=== PATIENT | male | born 1950 | race Caucasian/White ===

== ENCOUNTER 2017-07-13 20:43 | Observation (INO) | payer BC ==
[2017-07-13] MEDS ORDERED: Acetaminophen 325 MG Tab PO ONE (22:09)
[2017-07-13] MEDS ORDERED: Albuterol/Ipratropium 3.0-0.5 MG/3 ML Neb Soln NEB ONE (22:10)
[2017-07-13] MEDS ORDERED: Benzocaine/Cetylpyridinium/Menthol Lozenge MUCMEM PRN (22:56)
[2017-07-13] MEDS ORDERED: Ondansetron 4 MG Tab.DIS PO ONE (22:57)
[2017-07-13] MEDS ORDERED: cefTRIAXone 1 GM in Sodium Chloride 0.9% 50 ML IV ONE (23:03)
--- NOTE | 2017-07-14 00:06 | EDM.PDOC ---
ED HPI GENERAL MEDICAL PROBLEM - General Chief Complaint: General Stated Complaint: COLD Time Seen by Provider: 07/13/17 21:02 Source of Information: Reports: Patient, Family History Limitations: Reports: No Limitations - History of Present Illness INITIAL COMMENTS - FREE TEXT/NARRATIVE: This gentleman comes in because of cough fever and shortness of breath. He is from out of town and here visiting for about a week and are staying in a cabin about 20 miles out of town. Today he felt crummy. He's had a cough he gets a little bit of chest pain with cough and has noted that he has a fever. He has a history of chronic bronchitis and quit smoking just a few weeks ago. He used his albuterol inhaler at home but says it really didn't help too much. Normally he has an O2 sat of about 95%. Patient did have a myocardial infarction and one stent placed about 3 weeks ago. That was in [place]. He also had an DC 9 years ago and had 3 stents placed at that time. He said since then he has done very well. Patient does have a history of diabetes rheumatoid arthritis. Takes prednisone. Also takes methotrexate weekly. He is on Plavix and aspirin. His last Pneumovax was about 10 years ago. He's due for another one now. He complains of some vague discomfort in the chest and in the right lower quadrant whenever he coughs. He hasn't been taking anything for fever. He said that along time ago a doctor told him not to take Tylenol. He knows that he can't take ibuprofen since he is on the aspirin and Plavix. Throat Pain Score (Numeric/FACES): 8 Right Lower Abdominal Pain Score (Numeric/FACES): 2 - Related Data Allergies Allergy/AdvReac Type Severity Reaction Status Date / Time No Known Allergies Allergy Verified 07/13/17 21:50 Home Meds: Home Meds *Metoprolol Tartrate 1 tab PO BID 07/13/17 [History] Albuterol [Proventil HFA] 1 puff INH ASDIRECTED 07/13/17 [History] Aspirin 1 tab PO DAILY 07/13/17 [History] Clopidogrel [Plavix] 1 tab PO DAILY 07/13/17 [History] Lisinopril 1 tab PO DAILY 07/13/17 [History] Methotrexate 3 tab PO ASDIRECTED 07/13/17 [History] Pantoprazole [ProTONIX] 1 tab PO DAILY 07/13/17 [History] Rosuvastatin [Crestor] 1 tab PO DAILY 07/13/17 [History] cloNIDine [Catapres] 1 tab PO DAILY 07/13/17 [History] metFORMIN HCl [Metformin HCl] 2 tab PO BID 07/13/17 [History] predniSONE [Prednisone] 1 tab PO DAILY 07/13/17 [History] Past Medical History Cardiovascular History: Reports: CAD, High Cholesterol, Hypertension, DC, Stents Respiratory History: Reports: Bronchitis, Recurrent Gastrointestinal History: Reports: Other (See Below) Musculoskeletal History: Reports: RA Endocrine/Metabolic History: Reports: Diabetes, Type II Immunologic History: Reports: Other (See Below) Other Immunologic History: RA- on medications Dermatologic History: Reports: Eczema - Past Surgical History HEENT Surgical History: Reports: Tonsillectomy Cardiovascular Surgical History: Reports: Coronary Artery Stent GI Surgical History: Reports: Cholecystectomy, Hernia Repair/Other Musculoskeletal Surgical History: Reports: Arthroscopic Knee Social & Family History - Tobacco Use Smoking Status *Q: Former Smoker Used Tobacco, but Quit: Yes Month Tobacco Last Used: may 2017 - Recreational Drug Use Recreational Drug Use: No ED ROS GENERAL - Review of Systems Review Of Systems: See Below Constitutional: Reports: Fever, Chills, Malaise HEENT: Reports: No Symptoms Respiratory: Reports: Shortness of Breath, Pleuritic Chest Pain, Cough Cardiovascular: Reports: No Symptoms Endocrine: Reports: No Symptoms GI/Abdominal: Reports: Other (Vague right lower quadrant pain with cough) : Reports: No Symptoms Musculoskeletal: Reports: No Symptoms Skin: Reports: No Symptoms Neurological: Reports: No Symptoms Psychiatric: Reports: No Symptoms Hematologic/Lymphatic: Reports: No Symptoms Immunologic: Reports: No Symptoms ED EXAM, GENERAL - Physical Exam Exam: See Below Exam Limited By: No Limitations General Appearance: Alert, Mild Distress (Same was minimally short of breath), Other (Chronically ill appearing) Eye Exam: Bilateral Eye: Normal Inspection Throat/Mouth: Normal Inspection (I did) Head: Atraumatic Neck: Normal Inspection Respiratory/Chest: Lungs Clear (Distant breath sounds) Cardiovascular: Normal Peripheral Pulses, Regular Rate, Rhythm, No Edema, No Murmur Peripheral Pulses: 2+: Radial (L), Radial (R) GI/Abdominal: Soft, Non-Tender, Other (Bladder not distended) Back Exam: Normal Inspection Extremities: Normal Inspection Neurological: Alert, Oriented Psychiatric: Normal Affect Skin Exam: Warm, Dry Course - Vital Signs Last Recorded V/S: Last Vital Signs Temp 38.2 C H 07/13/17 23:49 Pulse 91 07/13/17 23:49 Resp 18 07/13/17 23:49 BP 152/76 H 07/13/17 23:49 Pulse Ox 94 L 07/13/17 23:49 - Orders/Labs/Meds Orders: Active Orders 24 hr Category Date Time Status EKG Documentation Completion [RC] ASDIRECTED Care 07/13/17 21:03 Active RT Aerosol Therapy [RC] ASDIRECTED Care 07/13/17 22:10 Active Chest 2V [CR] Urgent Exams 07/13/17 21:03 Taken CULTURE BLOOD [BC] Urgent Lab 07/13/17 21:03 Received CULTURE BLOOD [BC] Urgent Lab 07/13/17 21:03 Received UA W/MICROSCOPIC [URIN] Urgent Lab 07/13/17 23:33 Uncollected Benzocaine/Cetylpyrd/Menthol [Cepacol Sore Throat] Med 07/13/17 22:56 Active 1 lozenge MUCMEM ASDIRECTED PRN Blood Culture x2 Reflex Set [OM.PC] Urgent Oth 07/13/17 21:03 Ordered EKG 12 Lead [EK] Urgent Ther 07/13/17 21:03 Ordered Medication Orders Benzocaine/Menthol (Cepacol Sore Throat) 1 lozenge MUCMEM ASDIRECTED PRN PRN Reason: Pain Last Admin: 07/13/17 23:04 Dose: 1 dose Labs: Laboratory Tests 07/13/17 07/13/17 07/13/17 Range/Units 21:03 21:03 21:03 WBC 14.4 H (4.5-11.0) K/uL RBC 4.96 (4.30-5.90) M/uL Hgb 15.5 H (12.0-15.0) g/dL Hct 44.4 (40.0-54.0) % MCV 90 (80-98) fL MCH 31 (27-31) pg MCHC 35 (32-36) % Plt Count 172 (150-400) K/uL Neut % (Auto) 84 H (36-66) % Lymph % (Auto) 8 L (24-44) % Dewitt % (Auto) 8 H (2-6) % Eos % (Auto) 1 L (2-4) % Baso % (Auto) 1 (0-1) % D-Dimer, Quantitative (0.0-400.0) ng/mL Sodium 135 L (140-148) mmol/L Potassium 3.7 (3.6-5.2) mmol/L Chloride 101 (100-108) mmol/L Carbon Dioxide 23 (21-32) mmol/L Anion Gap 14.7 H (5.0-14.0) mmol/L BUN 13 (7-18) mg/dL Creatinine 1.1 (0.8-1.3) mg/dL Est Cr Clr Drug Dosing 69.13 mL/min Estimated GFR (MDRD) > 60 (>60) Glucose 193 H (74-106) mg/dL Lactic Acid 2.0 (0.4-2.0) mmol/L Calcium 8.4 L (8.5-10.1) mg/dL Total Bilirubin 1.2 H (0.2-1.0) mg/dL AST 16 (15-37) U/L ALT 14 (12-78) U/L Alkaline Phosphatase 91 (46-116) U/L Total Protein 7.0 (6.4-8.2) g/dL Albumin 3.7 (3.4-5.0) g/dL Globulin 3.3 (2.3-3.5) g/dL Albumin/Globulin Ratio 1.1 L (1.2-2.2) 07/13/17 Range/Units 22:09 WBC (4.5-11.0) K/uL RBC (4.30-5.90) M/uL Hgb (12.0-15.0) g/dL Hct (40.0-54.0) % MCV (80-98) fL MCH (27-31) pg MCHC (32-36) % Plt Count (150-400) K/uL Neut % (Auto) (36-66) % Lymph % (Auto) (24-44) % Dewitt % (Auto) (2-6) % Eos % (Auto) (2-4) % Baso % (Auto) (0-1) % D-Dimer, Quantitative 353 (0.0-400.0) ng/mL Sodium (140-148) mmol/L Potassium (3.6-5.2) mmol/L Chloride (100-108) mmol/L Carbon Dioxide (21-32) mmol/L Anion Gap (5.0-14.0) mmol/L BUN (7-18) mg/dL Creatinine (0.8-1.3) mg/dL Est Cr Clr Drug Dosing mL/min Estimated GFR (MDRD) (>60) Glucose (74-106) mg/dL Lactic Acid (0.4-2.0) mmol/L Calcium (8.5-10.1) mg/dL Total Bilirubin (0.2-1.0) mg/dL AST (15-37) U/L ALT (12-78) U/L Alkaline Phosphatase (46-116) U/L Total Protein (6.4-8.2) g/dL Albumin (3.4-5.0) g/dL Globulin (2.3-3.5) g/dL Albumin/Globulin Ratio (1.2-2.2) Meds: Medications Generic Name Dose Route Start Last Admin Trade Name Freq PRN Reason Stop Dose Admin Benzocaine/Menthol 1 lozenge 07/13/17 22:56 07/13/17 23:04 Cepacol Sore Throat MUCMEM 1 dose ASDIRECTED PRN Administration Pain Discontinued Medications Generic Name Dose Route Start Last Admin Trade Name Freq PRN Reason Stop Dose Admin Acetaminophen 650 mg 07/13/17 22:09 07/13/17 22:29 Tylenol PO 07/13/17 22:10 650 mg NOW ONE Administration Albuterol/Ipratropium 3 ml 07/13/17 22:10 07/13/17 22:30 Duoneb 3.0-0.5 Mg/3 Ml NEB 07/13/17 22:11 3 ml ONETIME ONE Administration Ceftriaxone Sodium 1 gm/ 50 mls @ 100 mls/hr 07/13/17 23:03 07/13/17 23:39 Sodium Chloride IV 07/13/17 23:32 100 mls/hr ONETIME ONE Administration Ondansetron HCl 8 mg 07/13/17 22:57 07/13/17 23:04 Zofran Odt PO 07/13/17 22:58 8 mg ONETIME ONE Administration - Radiology Interpretation Free Text/Narrative:: Chest x-ray shows normal heart size normal lung markings normal bony and soft tissues - Re-Assessments/Exams Free Text/Narrative Re-Assessment/Exam: 07/14/17 00:09 and EKG shows a normal sinus rhythm at 87 bpm which probably a left anterior fascicular block there's Q-wave in II, III and aVF, there are no acute ST and T changes. Specifically I don't see any ST elevation in the inferior leads. There is no old EKG for comparison Free Text/Narrative Re-Assessment/Exam: 07/14/17 00:11 2 blood cultures were done on this patient and he received Rocephin 1 g IV. Chest x-ray did not show any obvious infiltrate but with his fever and elevated white count and cough as well as his history of diabetes rheumatoid arthritis and other illnesses but felt it was brown to go ahead and begin treatment for pneumonia. Note that a d-dimer was negative on this patient The family has a lot of concerns about the patient because of his chronic illnesses in the [place]. They're concerned about his low oxygen saturation as well. I spoke with Dr. Vergara and he will come to the emergency department and admit the patient Departure - Departure Time of Disposition: 00:14 Disposition: Admitted As Inpatient 68 Condition: Fair Clinical Impression: Pneumonia - Discharge Information Forms: ED Department Discharge - My Orders Last 24 Hours: My Active Orders 07/13/17 21:03 EKG Documentation Completion [RC] ASDIRECTED Chest 2V [CR] Urgent CULTURE BLOOD [BC] Urgent CULTURE BLOOD [BC] Urgent Blood Culture x2 Reflex Set [OM.PC] Urgent EKG 12 Lead [EK] Urgent 07/13/17 22:10 RT Aerosol Therapy [RC] ASDIRECTED 07/13/17 22:56 Benzocaine/Cetylpyrd/Menthol [Cepacol Sore Throat] 1 lozenge MUCMEM ASDIRECTED PRN 07/13/17 23:33 UA W/MICROSCOPIC [URIN] Urgent - Assessment/Plan Last 24 Hours: My Active Orders 07/13/17 21:03 EKG Documentation Completion [RC] ASDIRECTED Chest 2V [CR] Urgent CULTURE BLOOD [BC] Urgent CULTURE BLOOD [BC] Urgent Blood Culture x2 Reflex Set [OM.PC] Urgent EKG 12 Lead [EK] Urgent 07/13/17 22:10 RT Aerosol Therapy [RC] ASDIRECTED 07/13/17 22:56 Benzocaine/Cetylpyrd/Menthol [Cepacol Sore Throat] 1 lozenge MUCMEM ASDIRECTED PRN 07/13/17 23:33 UA W/MICROSCOPIC [URIN] Urgent
[2017-07-14] MEDS ORDERED: Ondansetron 4 MG Tab.DIS PO PRN (00:12)
[2017-07-14] MEDS ORDERED: Benzocaine/Cetylpyridinium/Menthol Lozenge MUCMEM PRN (00:23)
[2017-07-14] MEDS: Sodium Chloride 0.9% 1,000 ML IV SCH ×2 (02:18→09:17)
[2017-07-14] MEDS: Codeine/guaiFENesin 100mg-10 MG/5 ML Syrup 10 ML Cup PO PRN ×4 (03:02→19:30)
[2017-07-14] MEDS: Acetaminophen 325 MG Tab PO PRN ×4 (03:03→20:58)
--- NOTE | 2017-07-14 07:42 | HP ---
CHIEF COMPLAINT: Cough and shortness of breath. HISTORY OF PRESENT ILLNESS: A 67-year-old with history of chronic bronchitis, he's noticed today started having shortness of breath with a productive cough, fever, came into the emergency room for further evaluation, evaluated by the emergency room physician and was noted to be slightly hypoxic, there in the area from the [facility] at a cabin, and did not feel comfortable taking him home. After initial evaluation and treatment in the emergency room, because of underlying medical conditions including diabetes, chronic problems with rheumatoid arthritis, history of chronic bronchitis and history of coronary artery disease with slight heart attack about a month ago with one stent placed, apparently had three stents placed a number of years ago also for heart disease. He really has not had any chest pain other than with coughing. PAST MEDICAL HISTORY: 1. Type 2 diabetes mellitus. 2. Rheumatoid arthritis. 3. Coronary artery disease with a stent placed after myocardial infarction approximately about four weeks ago. 4. Chronic neck pain with history of neck surgeries. Chronic back pain with history of back surgeries and meniscus surgery on one of his knees. MEDICATIONS: Metoprolol twice a day, albuterol inhaler p.r.n., aspirin 81 mg daily, Plavix 75 mg daily, lisinopril 5 mg daily, methotrexate 2.5 mg tablets three tablets as directed, pantoprazole 40 mg daily, Crestor 10 mg daily, clonidine 0.1 mg daily, metformin 500 mg two tablets b.i.d., and prednisone 5 mg daily. ALLERGIES: NO KNOWN DRUG ALLERGIES. SOCIAL HISTORY: He quit smoking a month ago when he had his heart attack. Occasional alcohol use. He is here vacationing with family at a cabin. FAMILY HISTORY: Sounds like there is a history of heart disease. REVIEW OF SYSTEMS: Denies headaches, vision changes. He does have sore throat with this coughing, shortness of breath, chest pain with just coughing, cough has been productive. He has had nausea associated with this. Denies any swelling in his legs. No bowel or bladder trouble, no skin problem. PHYSICAL EXAMINATION: VITAL SIGNS: Temp initially was 38.6, last temp was 38.2, pulse 89, blood pressure 165/94, most recent 152/76, respirations 16, O2 saturation 93% on room air. GENERAL: The patient is alert and oriented x3. No apparent distress. HEENT: Pharynx looked unremarkable. NECK: Supple. No significant adenopathy. LUNGS: Clear with no tachypnea. HEART: Regular without murmurs. ABDOMEN: Soft. Mild diffuse discomfort. No mass or organomegaly palpated. No distention. EXTREMITIES: No edema. SKIN: Negative. NEURO: Cranial nerves 2 through 12 grossly intact. DIAGNOSTIC AND LABORATORY DATA: EKG showed sinus rhythm, ventricular rate 80 beats per minute. I do not have any old to compare with. I do not see any significant ST-segment elevation or depression seen. No dysrhythmia seen. Lab, white count 14.4, hemoglobin 15.5, platelets 172,000. D-dimer was 353. Sodium 135, potassium 3.7, chloride 101, BUN was 13, creatinine 1.1, and glucose 193. Liver functions were normal. Troponin pending. Lactic acid was normal at 2.0. Chest x-ray did not show any definite infiltrate. ASSESSMENT AND PLAN: 1. Exacerbation of chronic bronchitis. The patient received a DuoNeb treatment, which did help, but did not last very long. He also received cough medicine as needed for the cough. The patient has already been started on IV Rocephin which we will continue daily. We will admit him under observation. Anticipate less than two midnight stays. Transfers care to the hospitalist service in the morning. 2. History of type 2 diabetes mellitus. 3. Rheumatoid arthritis. 4. History of neck and back surgeries in the past. Knee surgery. 5. Coronary artery disease with stent placed about a month ago. Lucio Vergara MD /[id number]
[2017-07-14] MEDS ORDERED: predniSONE 5 MG Tab PO SCH (08:00)
[2017-07-14] MEDS: Pantoprazole 40 MG Tab.CR PO SCH (08:55)
[2017-07-14] MEDS: metFORMIN 500 MG Tab PO SCH ×2 (08:55→16:41)
[2017-07-14] MEDS: cloNIDine 0.1 MG Tab PO SCH (08:56)
[2017-07-14] MEDS: Aspirin 81 MG Tab.EC PO SCH (08:56)
[2017-07-14] MEDS: Rosuvastatin 10 MG Tab PO SCH (08:56)
[2017-07-14] MEDS: Lisinopril 5 MG Tab PO SCH (08:57)
[2017-07-14] MEDS: Clopidogrel 75 MG Tab PO SCH (08:57)
[2017-07-14] MEDS ORDERED: Pneumococcal Polyvalent-23 Vaccine 0.5 ML SDV IM ONE (09:00)
[2017-07-14] MEDS ORDERED: Methotrexate 2.5 MG Tab PO SCH (09:00)
--- NOTE | 2017-07-14 09:42 | CR ---
Chest 2V INDICATION: pain FINDINGS: Negative chest.
[2017-07-14] MEDS: Albuterol/Ipratropium 3.0-0.5 MG/3 ML Neb Soln INH PRN ×2 (13:33→20:59)
--- NOTE | 2017-07-14 16:30 | PCM.PN ---
- General Info Date of Service: 07/14/17 Functional Status: Reports: Tolerating Diet, Ambulating, Urinating - Review of Systems General: Denies: Fever, Chills Pulmonary: Reports: Shortness of Breath, Cough, Wheezing. Denies: Sputum, Hemoptysis Cardiovascular: Reports: Dyspnea on Exertion. Denies: Chest Pain, Palpitations , Orthopnea, PND, Edema, Lightheadedness Gastrointestinal: Reports: No Symptoms Systems Review Comment:: This patient is a 67-year-old gentleman who was admitted last night through the emergency department by Dr. Vergara with shortness of breath, hypoxia, and weakness. He was felt to have probable COPD exacerbation secondary to underlying bronchitis. He is been treated with IV antibiotics as well as nebulizer therapy and does feel moderately improved since admission. Cough seems to be somewhat better and he is less short of breath. - Patient Data Vitals - Most Recent: Last Vital Signs Temp 99.4 F 07/14/17 14:23 Pulse 84 07/14/17 14:23 Resp 17 07/14/17 14:23 BP 129/68 07/14/17 14:23 Pulse Ox 91 L 07/14/17 15:15 Weight - Most Recent: 176 lb 7.998 oz I&O - Last 24 Hours: Intake & Output 07/14/17 07/14/17 07/14/17 06:59 14:59 22:59 Intake Total 198 850 Output Total 1 Balance 197 850 Lab Results Last 24 Hours: Laboratory Results - last 24 hr 07/14/17 07/14/17 07/14/17 Range/Units 00:23 00:41 06:06 Troponin I < 0.017 < 0.017 (0.000-0.056) ng/mL Urine Color Yellow Urine Appearance Clear Urine pH 5.0 (4.5-8.0) Ur Specific [place] 1.015 (1.008-1.030) Urine Protein Negative (NEGATIVE) mg/dL Urine Glucose (UA) Normal (NEGATIVE) mg/dL Urine Ketones 15 H (NEGATIVE) mg/dL Urine Occult Blood Negative (NEGATIVE) Urine Nitrite Negative (NEGAITVE) Urine Bilirubin Negative (NEGATIVE) Urine Urobilinogen Normal (NORMAL) mg/dL Ur Leukocyte Esterase Negative (NEGATIVE) Urine RBC 0-5 (0-5) Urine WBC 0-5 (0-5) Ur Epithelial Cells Not seen Amorphous Sediment Not seen Urine Bacteria Rare Urine Mucus Not seen Med Orders - Current: Current Medications Acetaminophen (Tylenol) 650 mg PO Q4H PRN PRN Reason: Pain (Mild 1-3)/fever Last Admin: 07/14/17 13:27 Dose: 650 mg Albuterol/Ipratropium (Duoneb 3.0-0.5 Mg/3 Ml) 3 ml INH Q2H PRN PRN Reason: Shortness Of Breath/wheezing Last Admin: 07/14/17 13:33 Dose: 3 ml Aspirin (Halfprin) 81 mg PO DAILY [facility] Last Admin: 07/14/17 08:56 Dose: 81 mg Benzocaine/Menthol (Cepacol Sore Throat) 1 lozenge MUCMEM ASDIRECTED PRN PRN Reason: Pain Clonidine HCl (Catapres) 0.1 mg PO DAILY [facility] Last Admin: 07/14/17 08:56 Dose: 0.1 mg Clopidogrel Bisulfate (Plavix) 75 mg PO DAILY [facility] Last Admin: 07/14/17 08:57 Dose: 75 mg Guaifenesin/Codeine Phosphate (Robitussin Ac) 10 ml PO Q4H PRN PRN Reason: Cough Last Admin: 07/14/17 13:27 Dose: 10 ml Ceftriaxone Sodium 1 gm/ (Sodium Chloride) 50 mls @ 100 mls/hr IV Q24H [facility] Azithromycin 500 mg/ Sodium (Chloride) 250 mls @ 250 mls/hr IV Q24H [facility] Lisinopril (Prinivil) 5 mg PO DAILY [facility] Last Admin: 07/14/17 08:57 Dose: 5 mg Metformin HCl (Glucophage) 1,000 mg PO BIDMEALS [facility] Last Admin: 07/14/17 08:55 Dose: 1,000 mg Methotrexate (Methotrexate) 7.5 mg PO Tu@0900 [facility] Last Admin: 07/14/17 08:57 Dose: 7.5 mg Methylprednisolone Sodium Succinate (Solu-Medrol) 40 mg IVPUSH Q6H [facility] Ondansetron HCl (Zofran Odt) 4 mg PO Q6H PRN PRN Reason: Nausea able to take PO Pantoprazole Sodium (Protonix) 40 mg PO ACBREAKFAST [facility] Last Admin: 07/14/17 08:55 Dose: 40 mg Rosuvastatin Calcium (Crestor) 10 mg PO DAILY [facility] Last Admin: 07/14/17 08:56 Dose: 10 mg Discontinued Medications Acetaminophen (Tylenol) 650 mg PO NOW ONE Stop: 07/13/17 22:10 Last Admin: 07/13/17 22:29 Dose: 650 mg Albuterol/Ipratropium (Duoneb 3.0-0.5 Mg/3 Ml) 3 ml NEB ONETIME ONE Stop: 07/13/17 22:11 Last Admin: 07/13/17 22:30 Dose: 3 ml Benzocaine/Menthol (Cepacol Sore Throat) 1 lozenge MUCMEM ASDIRECTED PRN PRN Reason: Pain Last Admin: 07/13/17 23:04 Dose: 1 dose Ceftriaxone Sodium 1 gm/ (Sodium Chloride) 50 mls @ 100 mls/hr IV ONETIME ONE Stop: 07/13/17 23:32 Last Admin: 07/13/17 23:39 Dose: 100 mls/hr Sodium Chloride (Normal Saline) 1,000 mls @ 125 mls/hr IV ASDIRECTED [facility] Last Admin: 07/14/17 09:17 Dose: 125 mls/hr Ondansetron HCl (Zofran Odt) 8 mg PO ONETIME ONE Stop: 07/13/17 22:58 Last Admin: 07/13/17 23:04 Dose: 8 mg Pneumococcal Polyvalent Vaccine (Pneumovax 23) 0.5 ml IM .ONCE ONE Stop: 07/14/17 09:01 Last Admin: 07/14/17 09:53 Dose: 0.5 ml Prednisone (Prednisone) 5 mg PO DAILY@0800 [facility] Last Admin: 07/14/17 08:56 Dose: 5 mg - Exam General: Alert, Oriented, Cooperative, Mild Distress Lungs: Normal Respiratory Effort, Decreased Breath Sounds, Wheezing. No: Crackles, Rales, Rhonchi Cardiovascular: Regular Rate, Regular Rhythm, No Murmurs GI/Abdominal Exam: Normal Bowel Sounds, Soft, Non-Tender, No Distention Extremities: Normal Inspection, No Pedal Edema Skin: Warm, Dry, Intact - Problem List Review Problem List Initiated/Reviewed/Updated: Yes - My Orders Last 24 Hours: My Active Orders 07/14/17 16:22 Convert IV to Saline Lock [OM.PC] Routine 07/14/17 16:30 Azithromycin [Zithromax] 500 mg Sodium Chloride 0.9% [Normal Saline] 250 ml IV Q24H methylPREDNISolone Sod Succ [Solu-MEDROL] 40 mg IVPUSH Q6H 07/15/17 05:00 BASIC METABOLIC PANEL,BMP [CHEM] Timed CBC WITH AUTO DIFF [HEME] Timed - Plan Plan:: ASSESSMENT AND PLAN HYPOXIC RESPIRATORY FAILURE-secondary to COPD exacerbation and bronchitis -Supplemental oxygen as needed COPD EXACERBATION SECONDARY TO BRONCHITIS-he has a [id number] smoking history , no previous formal diagnosis of COPD. Could also represent reactive airway process -Solu-Medrol 40 mg IV every 6 hours -Nebulizer therapy -IV Rocephin and azithromycin CORONARY ARTERY DISEASE-status post angioplasty with stent placement 3-4 weeks ago. Currently denies any symptoms of chest pain or pressure. -Continue outpatient medical regimen MAINTENANCE ISSUES -DVT prophylaxis; Lovenox 40 mg subcutaneous daily -GI prophylaxis; not indicated -Davis catheter; not indicated -Nutrition; regular diet -Nicotine dependence; not required CODE STATUS-FULL CODE ADMISSION STATUS-he's been admitted to observation status, expect no more than an additional night hospital stay and certainly less than 48 hours for management of problems as outlined above DISPOSITION-anticipate discharge to home after the hospital stay. PRIMARY CARE PROVIDER-patient is not from the area and receives his primary care elsewhere
[2017-07-14] MEDS: methylPREDNISolone Sodium Succinate 40 MG/1 ML SDV IVPUSH SCH ×2 (16:40→23:05)
[2017-07-14] MEDS ORDERED: Azithromycin 500 MG in Sodium Chloride 0.9% 250 ML IV SCH (17:00)
[2017-07-14] MEDS ORDERED: Enoxaparin 40 MG/0.4 ML Syringe SUBCUT SCH (17:00)
[2017-07-14] MEDS ORDERED: cefTRIAXone 1 GM in Sodium Chloride 0.9% 50 ML IV ONE (23:00)
[2017-07-15] MEDS: Codeine/guaiFENesin 100mg-10 MG/5 ML Syrup 10 ML Cup PO PRN ×2 (00:38→08:42)
[2017-07-15] MEDS: methylPREDNISolone Sodium Succinate 40 MG/1 ML SDV IVPUSH SCH ×2 (04:37→11:13)
[2017-07-15] MEDS: Aspirin 81 MG Tab.EC PO SCH (08:36)
[2017-07-15] MEDS: Rosuvastatin 10 MG Tab PO SCH (08:36)
[2017-07-15] MEDS: metFORMIN 500 MG Tab PO SCH (08:36)
[2017-07-15] MEDS: Pantoprazole 40 MG Tab.CR PO SCH (08:37)
[2017-07-15] MEDS: cloNIDine 0.1 MG Tab PO SCH (08:37)
[2017-07-15] MEDS: Clopidogrel 75 MG Tab PO SCH (08:38)
[2017-07-15] MEDS: Lisinopril 5 MG Tab PO SCH (08:38)
[2017-07-15 12:19] VITALS: BP 129/73
--- NOTE | 2017-07-15 12:21 | PCM.DCSUM1 ---
Discharge Summary - Hospital Course Brief History: This patient is a 67-year-old gentleman who was admitted through the emergency department with respiratory compromise secondary to reactive airway process as well as underlying bronchitis. - Discharge Data Discharge Date: 07/15/17 Discharge Disposition: Home, Self-Care 01 Condition: Fair - Discharge Diagnosis/Problem(s) (1) Asthma SNOMED Code(s): 290807430 ICD Code: J45.909 - UNSPECIFIED ASTHMA, UNCOMPLICATED Status: Acute Current Visit: Yes (2) Bronchitis SNOMED Code(s): 04558920 ICD Code: J40 - BRONCHITIS, NOT SPECIFIED ACUTE OR CHRONIC Status: Acute Current Visit: Yes (3) Type 2 diabetes mellitus SNOMED Code(s): 30653451 ICD Code: E11.9 - TYPE 2 DIABETES MELLITUS WITHOUT COMPLICATIONS Status: Chronic Current Visit: No - Patient Summary/Data Hospital Course: Mr. Hawkins is a 67-year-old gentleman whose had a previous history of respiratory compromise associated with upper respiratory tract infections. He developed symptoms of cough associated with increased shortness of breath and presented to the emergency department for further evaluation. On evaluation in the emergency department was noted to have temperature elevation of 101.4 as well as elevation in white blood cell count at 14,000. Chest x-ray showed no obvious infiltrate, oxygen saturations were borderline. He was felt to have reactive airway process secondary to underlying bronchitis. He was admitted to observation status and given IV antibiotic therapy with Rocephin and azithromycin. Initially was given IV fluids for hydration as well as IV Solu- Medrol and nebulizer therapy. Over the next 2 days of his observation hospitalization he felt improved as far as the shortness of breath. Continues to experience symptoms of cough and generalized weakness. Fever had resolved and his white blood cell count had normalized. He will be discharged home and complete a course of oral antibiotic therapy with the azithromycin. He will be treated with prednisone 40 mg daily for an additional 5 days. Blood glucose levels were monitored during hospital stay because of his known history of type 2 diabetes mellitus and he was treated with sliding scale NovoLog insulins as needed. Blood glucose levels were elevated secondary to glucocorticoid therapy which should return to normal range after he is off of the steroids. Activity will be as tolerated and he will resume his usual diabetic diet. Follow-up appointment should be scheduled with his primary care provider within one week. - Patient Instructions Diet: Diabetic Diet Activity: As Tolerated Other/Special Instructions: Schedule follow-up appointment with primary care provider within one week - Discharge Plan Prescriptions/Med Rec: Azithromycin [IJD: Azithromycin] 250 mg PO DAILY #4 tab Codeine/guaiFENesin [Robitussin AC] 1 - 2 tsp PO Q4H PRN #30 ml PRN Reason: Cough Prednisone [IJD: predniSONE] 40 mg PO WITHBREAKFAST #10 tab Home Medications: Home Meds *Metoprolol Tartrate 1 tab PO BID 07/13/17 [History] Albuterol [Proventil HFA] 1 puff INH ASDIRECTED 07/13/17 [History] Aspirin 81 mg PO DAILY 07/13/17 [History] Clopidogrel [Plavix] 75 mg PO DAILY 07/13/17 [History] Lisinopril 5 mg PO DAILY 07/13/17 [History] Methotrexate 7.5 mg PO WEEKLY 07/13/17 [History] Pantoprazole [ProTONIX] 40 mg PO DAILY 07/13/17 [History] Rosuvastatin [Crestor] 10 mg PO DAILY 07/13/17 [History] cloNIDine [Catapres] 0.1 tab DAILY 07/13/17 [History] metFORMIN HCl [Metformin HCl] 1,000 mg PO BID 07/13/17 [History] predniSONE [Prednisone] 5 mg PO DAILY 07/13/17 [History] Azithromycin [IJD: Azithromycin] 250 mg PO DAILY #4 tab 07/15/17 [Rx] Codeine/guaiFENesin [Robitussin AC] 1 - 2 tsp PO Q4H PRN #30 ml 07/15/17 [Rx] Prednisone [IJD: predniSONE] 40 mg PO WITHBREAKFAST #10 tab 07/15/17 [Rx] Forms: ED Department Discharge Referrals: PCP,None [Primary Care Provider] - - Patient Data Vitals - Most Recent: Last Vital Signs Temp 97.9 F 07/15/17 08:33 Pulse 83 07/15/17 08:33 Resp 18 07/15/17 08:33 BP 152/96 H 07/15/17 08:38 Pulse Ox 94 L 07/15/17 08:33 Weight - Most Recent: 176 lb 7.998 oz I&O - Last 24 hours: Intake & Output 07/14/17 07/15/17 07/15/17 22:59 06:59 14:59 Intake Total 2148 450 600 Balance 2148 450 600 Lab Results - Last 24 hrs: Laboratory Results - last 24 hr 07/15/17 07/15/17 Range/Units 04:47 04:47 WBC 9.8 (4.5-11.0) K/uL RBC 4.47 (4.30-5.90) M/uL Hgb 14.2 (12.0-15.0) g/dL Hct 40.7 (40.0-54.0) % MCV 91 (80-98) fL MCH 32 H (27-31) pg MCHC 35 (32-36) % Plt Count 169 (150-400) K/uL Neut % (Auto) 96 H (36-66) % Lymph % (Auto) 3 L (24-44) % B[place] % (Auto) 1 L (2-6) % Eos % (Auto) 0 L (2-4) % Baso % (Auto) 0 (0-1) % Sodium 136 L (140-148) mmol/L Potassium 4.0 (3.6-5.2) mmol/L Chloride 105 (100-108) mmol/L Carbon Dioxide 23 (21-32) mmol/L Anion Gap 12.0 (5.0-14.0) mmol/L BUN 12 (7-18) mg/dL Creatinine 1.0 (0.8-1.3) mg/dL Est Cr Clr Drug Dosing 76.23 mL/min Estimated GFR (MDRD) > 60 (>60) Glucose 279 H (74-106) mg/dL Calcium 8.1 L (8.5-10.1) mg/dL Med Orders - Current: Current Medications Acetaminophen (Tylenol) 650 mg PO Q4H PRN PRN Reason: Pain (Mild 1-3)/fever Last Admin: 07/14/17 20:58 Dose: 650 mg Albuterol/Ipratropium (Duoneb 3.0-0.5 Mg/3 Ml) 3 ml INH Q2H PRN PRN Reason: Shortness Of Breath/wheezing Last Admin: 07/14/17 20:59 Dose: 3 ml Aspirin (Halfprin) 81 mg PO DAILY JACY Last Admin: 07/15/17 08:36 Dose: 81 mg Benzocaine/Menthol (Cepacol Sore Throat) 1 lozenge MUCMEM ASDIRECTED PRN PRN Reason: Pain Clonidine HCl (Catapres) 0.1 mg PO DAILY [facility] Last Admin: 07/15/17 08:37 Dose: 0.1 mg Clopidogrel Bisulfate (Plavix) 75 mg PO DAILY [facility] Last Admin: 07/15/17 08:38 Dose: 75 mg Enoxaparin Sodium (Lovenox) 40 mg SUBCUT Q24H [facility] Last Admin: 07/14/17 16:40 Dose: 40 mg Guaifenesin/Codeine Phosphate (Robitussin Ac) 10 ml PO Q4H PRN PRN Reason: Cough Last Admin: 07/15/17 08:42 Dose: 10 ml Ceftriaxone Sodium 1 gm/ (Sodium Chloride) 50 mls @ 100 mls/hr IV Q24H [facility] Azithromycin 500 mg/ Sodium (Chloride) 250 mls @ 250 mls/hr IV Q24H [facility] Last Admin: 07/14/17 20:55 Dose: 250 mls/hr Lisinopril (Prinivil) 5 mg PO DAILY [facility] Last Admin: 07/15/17 08:38 Dose: 5 mg Metformin HCl (Glucophage) 1,000 mg PO BIDMEALS [facility] Last Admin: 07/15/17 08:36 Dose: 1,000 mg Methotrexate (Methotrexate) 7.5 mg PO Tu@0900 [facility] Last Admin: 07/14/17 08:57 Dose: 7.5 mg Methylprednisolone Sodium Succinate (Solu-Medrol) 40 mg IVPUSH Q6H [facility] Last Admin: 07/15/17 11:13 Dose: 40 mg Ondansetron HCl (Zofran Odt) 4 mg PO Q6H PRN PRN Reason: Nausea able to take PO Last Admin: 07/14/17 19:30 Dose: 4 mg Pantoprazole Sodium (Protonix) 40 mg PO ACBREAKFAST [facility] Last Admin: 07/15/17 08:37 Dose: 40 mg Rosuvastatin Calcium (Crestor) 10 mg PO DAILY [facility] Last Admin: 07/15/17 08:36 Dose: 10 mg Discontinued Medications Acetaminophen (Tylenol) 650 mg PO NOW ONE Stop: 07/13/17 22:10 Last Admin: 07/13/17 22:29 Dose: 650 mg Albuterol/Ipratropium (Duoneb 3.0-0.5 Mg/3 Ml) 3 ml NEB ONETIME ONE Stop: 07/13/17 22:11 Last Admin: 07/13/17 22:30 Dose: 3 ml Benzocaine/Menthol (Cepacol Sore Throat) 1 lozenge MUCMEM ASDIRECTED PRN PRN Reason: Pain Last Admin: 07/13/17 23:04 Dose: 1 dose Ceftriaxone Sodium 1 gm/ (Sodium Chloride) 50 mls @ 100 mls/hr IV ONETIME ONE Stop: 07/13/17 23:32 Last Admin: 07/13/17 23:39 Dose: 100 mls/hr Sodium Chloride (Normal Saline) 1,000 mls @ 125 mls/hr IV ASDIRECTED [facility] Last Admin: 07/14/17 09:17 Dose: 125 mls/hr Ceftriaxone Sodium 1 gm/ (Sodium Chloride) 50 mls @ 100 mls/hr IV ONETIME ONE Stop: 07/14/17 23:29 Last Admin: 07/14/17 23:08 Dose: 100 mls/hr Ondansetron HCl (Zofran Odt) 8 mg PO ONETIME ONE Stop: 07/13/17 22:58 Last Admin: 07/13/17 23:04 Dose: 8 mg Pneumococcal Polyvalent Vaccine (Pneumovax 23) 0.5 ml IM .ONCE ONE Stop: 07/14/17 09:01 Last Admin: 07/14/17 09:53 Dose: 0.5 ml Prednisone (Prednisone) 5 mg PO DAILY@0800 [facility] Last Admin: 07/14/17 08:56 Dose: 5 mg *Q Meaningful Use (DIS) - VTE *Q VTE Criteria *Q: - Stroke *Q Stroke Criteria *Q: - AMI *Q AMI Criteria *Q:
[2017-07-15] MEDS ORDERED: cefTRIAXone 1 GM in Sodium Chloride 0.9% 50 ML IV SCH (23:00)
== END 2017-07-15 12:55 | disposition home or self-care (01) ==
LOC: JP.ED 20:43 → JP.2SS 07-14 00:12
PROVIDERS: ADMIT Family Medicine; ATTEND Hospitalist
DX: J45.901 Unspecified asthma with (acute) exacerbation (principal); J20.9 Acute bronchitis, unspecified; J42 Unspecified chronic bronchitis; I25.10 Atherosclerotic heart disease of native coronary artery without angina pectoris; I10 Essential (primary) hypertension; Z95.5 Presence of coronary angioplasty implant and graft; Z87.891 Personal history of nicotine dependence; E78.00 Pure hypercholesterolemia, unspecified; I25.2 Old myocardial infarction; M06.9 Rheumatoid arthritis, unspecified; E11.9 Type 2 diabetes mellitus without complications; Z79.84 Long term (current) use of oral hypoglycemic drugs; L30.9 Dermatitis, unspecified; G89.29 Other chronic pain; M54.2 Cervicalgia; Z79.82 Long term (current) use of aspirin; Z79.899 Other long term (current) drug therapy
CPT/HCPCS: 36415; 71020; 80048; 80053; 81001; 83605; 84484; 85025; 85379; 87040; 93005; 96361; 96365; 96366; 96367; 96372; 96375; 96376; 99285; A9270; G0009; G0378; J0456; J0696; J1650; J2920; J7040; J7050; J7620; J8610; 90732